=== PATIENT | female | born 1975 | race Caucasian/White ===

== ENCOUNTER → 2019-11-22 09:23 | Outpatient (BNVA) | payer OTHER, SELFPAY | PROVIDERS: Family Provider Nurse Practitioner; Visit Provider Specialist | DX: G43.711 Chronic migraine without aura, intractable, with status migrainosus (principal); M77.8 Other enthesopathies, not elsewhere classified | CPT/HCPCS: 99203; J0585 ==

== ENCOUNTER → 2019-12-13 11:21 | Outpatient (BNVA) | payer OTHER, SELFPAY | PROVIDERS: Family Provider Nurse Practitioner; Visit Provider Specialist | DX: M77.9 Enthesopathy, unspecified (principal); M79.602 Pain in left arm; G43.711 Chronic migraine without aura, intractable, with status migrainosus; G56.23 Lesion of ulnar nerve, bilateral upper limbs | CPT/HCPCS: 95910 ==

== ENCOUNTER → 2019-12-14 12:43 | Outpatient (BNVA) | payer OTHER, SELFPAY | PROVIDERS: Family Provider Nurse Practitioner; Visit Provider Specialist | DX: M77.9 Enthesopathy, unspecified (principal); G43.711 Chronic migraine without aura, intractable, with status migrainosus; M79.602 Pain in left arm | CPT/HCPCS: 20550; 95861; 99213; J1030; J3490 ==

== ENCOUNTER → 2020-02-14 07:58 | Outpatient (BNVA) | payer OTHER, SELFPAY | PROVIDERS: Family Provider Nurse Practitioner; PCP Nurse Practitioner; Visit Provider Specialist | DX: G43.711 Chronic migraine without aura, intractable, with status migrainosus (principal); M77.8 Other enthesopathies, not elsewhere classified; M79.7 Fibromyalgia | CPT/HCPCS: 20550; 64615; J0585 ==

== ENCOUNTER → 2020-05-08 08:14 | Outpatient (BNVA) | payer OTHER, SELFPAY | PROVIDERS: Family Provider Nurse Practitioner; PCP Nurse Practitioner; Visit Provider Specialist | DX: G43.711 Chronic migraine without aura, intractable, with status migrainosus (principal); G56.23 Lesion of ulnar nerve, bilateral upper limbs; M54.2 Cervicalgia | CPT/HCPCS: 64615; 99213; J0585 ==

== ENCOUNTER 2020-06-30 10:04 | Outpatient (CLI) | payer OTHER, SELFPAY ==
--- NOTE | 2020-06-30 10:07 | MM_ITS ---
WS: [id number] SCREENING DIGITAL MAMMOGRAM WITH CAD HISTORY: SCREENING COMPARISON: 02/27/2019 and 01/10/2018 Bilateral CC and MLO views submitted. Computer aided detection analyzed. Breast composition: There are scattered areas of fibroglandular density. No suspicious masses, microc alcifications or architectural distortion. MM/[place] [id number] IMPRESSION: BI-RADS: 1-Negative FOLLOW UP: 1 Year Follow-up
== END 2020-06-30 10:05 | disposition home or self-care (01) ==
LOC: RADSHAW 10:05
PROVIDERS: Family Provider Nurse Practitioner; PCP Nurse Practitioner; Visit Provider Nurse Practitioner
DX: Z12.31 Encounter for screening mammogram for malignant neoplasm of breast (principal)
CPT/HCPCS: 77067

== ENCOUNTER → 2020-07-31 08:04 | Outpatient (BNVA) | payer OTHER, SELFPAY | PROVIDERS: Family Provider Nurse Practitioner; PCP Nurse Practitioner; Visit Provider Specialist | DX: G43.711 Chronic migraine without aura, intractable, with status migrainosus (principal); M77.9 Enthesopathy, unspecified; G56.23 Lesion of ulnar nerve, bilateral upper limbs; M54.2 Cervicalgia | CPT/HCPCS: 64615; 99212; J0585 ==

== ENCOUNTER 2020-08-06 07:31 | Outpatient (RCR) | payer OTHER, SELFPAY | END 2020-08-25 23:59 | disposition home or self-care (01) | LOC: SPO 07:31 | PROVIDERS: Family Provider Nurse Practitioner; PCP Nurse Practitioner; Referring Provider Nurse Practitioner Family; Visit Provider Nurse Practitioner Family | DX: M54.2 Cervicalgia (principal) | CPT/HCPCS: 97035; 97110; 97162; 97166 ==

== ENCOUNTER 2020-08-26 06:00 | Outpatient (RCR) | payer OTHER, SELFPAY | END 2020-09-17 10:25 | disposition home or self-care (01) | LOC: SPO 06:00 | PROVIDERS: Family Provider Nurse Practitioner; PCP Nurse Practitioner; Referring Provider Nurse Practitioner Family; Visit Provider Nurse Practitioner Family | DX: M54.2 Cervicalgia (principal) | CPT/HCPCS: 97035; 97110; 97140 ==

== ENCOUNTER → 2020-10-23 07:59 | Outpatient (BNVA) | payer OTHER, SELFPAY | PROVIDERS: Family Provider Nurse Practitioner; PCP Nurse Practitioner; Visit Provider Specialist | DX: G43.711 Chronic migraine without aura, intractable, with status migrainosus (principal); M77.9 Enthesopathy, unspecified; G56.23 Lesion of ulnar nerve, bilateral upper limbs; M54.2 Cervicalgia | CPT/HCPCS: 64615; J0585 ==

== ENCOUNTER → 2021-01-15 08:03 | Outpatient (BNVA) | payer OTHER, SELFPAY | PROVIDERS: Family Provider Nurse Practitioner; PCP Nurse Practitioner; Visit Provider Specialist | DX: G43.711 Chronic migraine without aura, intractable, with status migrainosus (principal) | CPT/HCPCS: 64615; J0585 ==

== ENCOUNTER → 2021-04-09 07:48 | Outpatient (BNVA) | payer OTHER, SELFPAY | PROVIDERS: Family Provider Nurse Practitioner; PCP Nurse Practitioner; Visit Provider Specialist | DX: G43.711 Chronic migraine without aura, intractable, with status migrainosus (principal) | CPT/HCPCS: 64615; J0585 ==

== ENCOUNTER → 2021-07-02 08:19 | Outpatient (BNVA) | payer OTHER, SELFPAY | PROVIDERS: Family Provider Nurse Practitioner; PCP Nurse Practitioner; Visit Provider Specialist | DX: G43.711 Chronic migraine without aura, intractable, with status migrainosus (principal) | CPT/HCPCS: 64615; J0585 ==

== ENCOUNTER → 2021-07-16 13:41 | Outpatient (BNVA) | payer OTHER, SELFPAY | PROVIDERS: Family Provider Nurse Practitioner; PCP Nurse Practitioner; Visit Provider Surgery | DX: E66.9 Obesity, unspecified (principal); Z68.38 Body mass index [BMI] 38.0-38.9, adult; E11.9 Type 2 diabetes mellitus without complications; K21.9 Gastro-esophageal reflux disease without esophagitis; Z98.84 Bariatric surgery status | CPT/HCPCS: 99213 ==

== ENCOUNTER 2021-07-23 06:53 | Day surgery (SDC) | payer OTHER, SELFPAY ==
[2021-07-21 13:18] VITALS: BMI 38.2
--- NOTE | 2021-07-23 07:01 | W.PM.OPSUD ---
Surgery/Procedure H&P Update DATE OF PROCEDURE: July 23, 2021 DATE H&P PERFORMED: 07/16/21 H&P UPDATE INFORMATION: I have reviewed H&P completed within last 30 days, I have examined patient prior to procedure and No changes to prior documentation CHANGES TO PREVIOUS DOCUMENTATION: The same PLANNED PROCEDURE: Operation Date: 07/23/21 08:30 Proposed Procedures p EGD 36211/44107/k21.9/z12.11(Not Applicable) - Jayro Maza MD s Colonoscopy(Not Applicable) - Jayro Maza MD
[2021-07-23 07:15] VITALS: BP 138/77; PULSE 74; RESP 16; TEMP 36.2; O2SAT 94
[2021-07-23] MEDS: sodium chloride 0.9% 1,000 ML 30 ML IV (07:30)
--- NOTE | 2021-07-23 07:50 | ANES.PREANE2 ---
Documented by User: Jennifer Black CRNA 07/23/21 07:59 Pre-Anesthetic Assessment Height/Weight: Height 1.65 m Weight 104.326 kg Temp Pulse Resp BP Pulse Ox 97.2 F L 74 16 138/77 94 07/23/21 07:15 07/23/21 07:15 07/23/21 07:15 07/23/21 07:15 07/23/21 07:15 Preop Diagnosis: Acid reflux a screening colonoscopy Operation Date: 07/23/21 08:30 Proposed Procedures p EGD 81111/31399/k21.9/z12.11(Not Applicable) - Jayro Maza MD s Colonoscopy(Not Applicable) - Jayro Maza MD Familial anesthetic complications: none Was Beta Vera taken within 24 hours: Yes Was Clonidine taken within 24 hours: N/A Last intake: Intake Last Liquid Date 07/22/21 Last Liquid Time 21:00 Last Solid Date 07/21/21 Last Solid Time 18:30 Social Alcohol (occasional) and No tobacco Exam alert, oriented x 3 and clear to auscultation bilaterally Airway Submandibular: within normal limits Cervical ROM: within normal limits Mallampati: Class II Dentition: full History/ROS No significant history except as noted Pulmonary Sleep Apnea (does not use CPAP) CV/HEM Hypertension Metabolic Hyperlipidemia and Morbid Obesity Anesthetic Plan ASA status: 3 Anesthesia: Anesthesia Evaluation and MAC Risk of > 500 ml blood loss (7ml/kg in children): No Medications/Allergies Home Medications Medication Instructions Recorded Confirmed Last Taken Type atenolol 25 mg tablet 25 mg PO DAILY 11/22/19 07/23/21 07/23/21 History atorvastatin 10 mg tablet 10 mg PO DAILY 11/22/19 07/23/21 07/22/21 History hydrochlorothiazide 25 mg tablet 25 mg PO DAILY 11/22/19 07/23/21 07/22/21 History magnesium oxide 420 mg tablet 420 mg PO DAILY 11/22/19 07/23/21 07/22/21 History metformin 1,000 mg tablet 1,000 mg PO BID 11/22/19 07/23/21 07/22/21 History omega-3 fatty acids 1,000 mg 3,000 mg PO BID cap 11/22/19 07/23/21 07/22/21 History capsule (Fish Oil Concentrate) Allergies Allergy/AdvReac Type Severity Reaction Status Date / Time No Known Allergies Allergy Verified 07/23/21 07:14 Current Medications Generic Name Dose Route Start Last Admin Trade Name Freq PRN Reason Stop Dose Admin Sodium Chloride 1,000 mls @ 30 mls/hr 07/23/21 07:15 07/23/21 07:30 Sodium Chloride 0.9% IV 30 mls/hr .Q24H BEAR Administration PFSH Anesthesia Medical History Diabetes Family History Grandfather CAD (coronary artery disease) Diabetes Grandmother Cancer Mother Diabetes Hypertension Fibromyalgia Father Diabetes Hypertension Atrial fibrillation Sister Diabetes Hypertension Social History Smoking and tobacco status: never smoked Data Anesthesia Cardiac Studies: No Data to Display
[2021-07-23 08:54] VITALS: BP 101/65; PULSE 63; RESP 14; TEMP 36.1; O2SAT 90
--- NOTE | 2021-07-23 08:58 | ANE.PACU2 ---
Documented by User: Jennifer Black CRNA 07/23/21 08:58 Inpatient post-anesthesia follow up: Airway intact: Yes Vital signs: Temperature 97.0 F Pulse Rate 63 Respiratory Rate 14 Blood Pressure 101/65 Pulse Oximetry 90 Oxygen Delivery Me thod Nasal Cannula Oxygen Flow Rate 3 Fraction of Inspir ed Oxygen Hydration adequate: Yes Nausea and vomiting: No Pain level: 1 Mental status: Baseline
[2021-07-23 09:06] VITALS: BP 100/68; PULSE 64; RESP 16; O2SAT 96
== END 2021-07-23 09:31 | disposition home or self-care (01) ==
PROVIDERS: PCP Nurse Practitioner; Visit Provider Surgery
PROC: 0DJ08ZZ Inspection of Upper Intestinal Tract, Via Natural or Artificial Opening Endoscopic (ICD-10-PCS; CPT 43235; principal; 2021-07-23 08:30)
PROC: 0DJD8ZZ Inspection of Lower Intestinal Tract, Via Natural or Artificial Opening Endoscopic (ICD-10-PCS; CPT 45378; 2021-07-23 08:30)
DX: Z12.11 Encounter for screening for malignant neoplasm of colon (principal); K21.9 Gastro-esophageal reflux disease without esophagitis; K57.30 Diverticulosis of large intestine without perforation or abscess without bleeding; D12.5 Benign neoplasm of sigmoid colon; K29.70 Gastritis, unspecified, without bleeding; K29.80 Duodenitis without bleeding; G47.30 Sleep apnea, unspecified; I10 Essential (primary) hypertension; E78.5 Hyperlipidemia, unspecified; E66.01 Morbid (severe) obesity due to excess calories; Z68.38 Body mass index [BMI] 38.0-38.9, adult; E11.9 Type 2 diabetes mellitus without complications
CPT/HCPCS: 43239; 45380; 88305; J2704; J7030

== ENCOUNTER 2021-07-30 06:53 | Outpatient (CLI) | payer OTHER, SELFPAY ==
--- NOTE | 2021-07-30 | US_ITS ---
WS: [id number] ULTRASOUND ABDOMEN LIMITED CLINICAL INFORMATION: RUQ PAIN COMPARISON: None. FINDINGS: Technically difficult study due to bowel gas Liver Size: Enlarged Craniocaudal length: 18.6 cm. Echogenicity: Heterogeneous Surface nodularity: None. Mass (size and location): None. Bile ducts Intrahepatic ducts: Normal. Common bile duct diameter: 0.5 cm. Gallbladder Normal. Gallstones: None. Gallbladder sludge: None. Gallbladder wall thickening: None. Pericholecystic fluid: None. Sonographic Montes sign: Absent. Pancreas Not well seen due to bowel gas Right kidney: Normal. Hydronephrosis: None. Size: 11.9 cm x 4.6 cm x 4.3 cm. Abdominal aorta and IVC Visualized portions are normal. Ascites: None. US/US abdomen limited [id number] IMPRESSION: Technically difficult study due to bowel gas 1. Hepatomegaly with coarse hepatic echogenicity likely due to fatty infiltrat ion versus hepatocellular disease. Recommend correlation with liver function te sts. 2. Normal gallbladder. No cholelithiasis. 3. No hydronephrosis in RIGHT kidney. 4. Pancreas not well visualized.
== END 2021-07-30 06:54 | disposition home or self-care (01) ==
LOC: RAD 06:54
PROVIDERS: PCP Nurse Practitioner; Visit Provider Nurse Practitioner
DX: R10.11 Right upper quadrant pain (principal); R16.0 Hepatomegaly, not elsewhere classified
CPT/HCPCS: 76705

== ENCOUNTER 2021-08-07 07:52 | Outpatient (CLI) | payer OTHER, SELFPAY ==
--- NOTE | 2021-08-07 07:55 | MM_ITS ---
WS: [id number] BILATERAL SCREENING DIGITAL BREAST TOMOSYNTHESIS MAMMOGRAM WITH CAD HISTORY: SCREENING COMPARISON: 06/30/2020, 02/27/2019 and 04/20/2016 Bilateral CC and MLO views with tomosynthesis and synthetic mammography submitted. Computer aided det ection analyzed. Breast composition: There are scattered areas of fibroglandular density. No suspicious masses, microc alcifications or architectural distortion. 6 mm asymmetry in the lateral RIGHT breast on the CC proje ction similar to 2017. MM/[place] [id number] IMPRESSION: BI-RADS: 2-Benign FOLLOW UP: 1 Year Follow-up
== END 2021-08-07 07:53 | disposition home or self-care (01) ==
LOC: RAD 07:52
PROVIDERS: PCP Nurse Practitioner; Visit Provider Nurse Practitioner
DX: Z12.31 Encounter for screening mammogram for malignant neoplasm of breast (principal)
CPT/HCPCS: 77063; 77067

== ENCOUNTER → 2021-09-09 07:55 | Outpatient (BNVA) | payer OTHER, SELFPAY | PROVIDERS: PCP Nurse Practitioner; Visit Provider Surgery | DX: E66.01 Morbid (severe) obesity due to excess calories (principal); Z68.38 Body mass index [BMI] 38.0-38.9, adult; E11.9 Type 2 diabetes mellitus without complications; K57.31 Diverticulosis of large intestine without perforation or abscess with bleeding; K63.5 Polyp of colon; K75.81 Nonalcoholic steatohepatitis (NASH) | CPT/HCPCS: 99213 ==

== ENCOUNTER → 2021-09-24 08:16 | Outpatient (BNVA) | payer OTHER, SELFPAY | PROVIDERS: PCP Nurse Practitioner; Visit Provider Specialist | DX: G43.711 Chronic migraine without aura, intractable, with status migrainosus (principal) | CPT/HCPCS: 64615; J0585 ==

== ENCOUNTER → 2021-10-07 13:02 | Outpatient (BNVA) | payer OTHER, SELFPAY | PROVIDERS: PCP Nurse Practitioner; Visit Provider Surgery | DX: E66.9 Obesity, unspecified (principal); Z68.38 Body mass index [BMI] 38.0-38.9, adult; E88.81 Metabolic syndrome and other insulin resistance; E11.9 Type 2 diabetes mellitus without complications; K75.81 Nonalcoholic steatohepatitis (NASH) | CPT/HCPCS: 80053; 80061; 82310; 82607; 82652; 82728; 82746; 83540; 83550; 83735; 83970; 84443; 84630; 85025; 99024 ==

== ENCOUNTER 2021-11-02 12:43 | Inpatient (IN) | payer OTHER, SELFPAY ==
[2021-10-27 09:44] VITALS: BMI 35.1
--- NOTE | 2021-10-27 10:30 | P.ANESASSM_ITS ---
Pre-Anesthetic Assessment Height/Weight: Height 1.65 m Weight 95.708 kg Preop Diagnosis: Acid reflux a screening colonoscopy Operation Date: 11/02/21 07:00 Proposed Procedures p laparascopic vertical gastric sleeve and 40914 EGD 37802,K21.9,E66.01(Not Applicable) - Jayro Maza MD Familial anesthetic complications: PONV Was Beta Vear taken within 24 hours: Yes Was Clonidine taken within 24 hours: N/A Social No alcohol and No tobacco Exam alert, oriented x 3, clear to auscultation bilaterally and regular rate & rhythm Airway Submandibular: within normal limits Cervical ROM: within normal limits Mallampati: Class III Dentition: chipped Comments: Comments: Overbite CV/HEM Hypertension GI Gastroesophageal Reflux Disease Metabolic Diabetes Mellitus, Hyperlipidemia and Morbid Obesity Musc/skel Osteoarthritis/DJD Neuropsych Headache Anesthetic Plan ASA status: 3 Anesthesia: General Medications/Allergies Home Medications Medication Instructions Recorded Confirmed Last Taken Type atenolol 25 mg tablet 25 mg PO DAILY 11/22/19 10/27/21 10/27/21 07:00 History atorvastatin 10 mg tablet 10 mg PO DAILY 11/22/19 10/27/21 10/26/21 20:00 History hydrochlorothiazide 25 mg tablet 25 mg PO DAILY 11/22/19 10/27/21 10/27/21 07:00 History magnesium oxide 420 mg tablet 420 mg PO DAILY 11/22/19 10/27/21 10/27/21 07:00 History metformin 1,000 mg tablet 1,000 mg PO BID 11/22/19 10/27/21 10/27/21 History omega-3 fatty acids 1,000 mg 3,000 mg PO BID 11/22/19 10/27/21 10/25/21 History capsule (Fish Oil Concentrate) ubrogepant 100 mg tablet (Ubrelvy) 100 mg PO ONCE #90 tabs 09/24/21 10/08/21 Unknown Rx Allergies Allergy/AdvReac Type Severity Reaction Status Date / Time No Known Allergies Allergy Verified 10/08/21 08:22 [facility] Anesthesia Medical History Diabetes Family History Grandfather CAD (coronary artery disease) Diabetes Grandmother Cancer Mother Diabetes Hypertension Fibromyalgia Father Diabetes Hypertension Atrial fibrillation Sister Diabetes Hypertension Social History Smoking and tobacco status: never smoked Female Reproductive History Date of last menstrual period: 04/13/18 Data Anesthesia Cardiac Studies: No Data to Display
[2021-11-02] VITALS (28 sets, daily range): BP systolic 130–149; BP diastolic 76–98; PULSE 59–96; RESP 12–19; TEMP 36.1–37; O2SAT 94–100
[2021-11-02] MEDS: sodium chloride 0.9% 1,000 ML 999 ML IV (07:58)
[2021-11-02] MEDS: scopolamine 1.5 Patch 1 PATCH TRANSDERMA (08:04)
[2021-11-02] MEDS: pantoprazole 40 mg SDV IVP (08:06)
--- NOTE | 2021-11-02 08:08 | P.ANESUD_ITS ---
Pre-Anesthetic Update Pre-Anesthetic Assessment: Date of Surgery/Procedure: 11/02/21 Preop Kathy gnosis: Acid reflux a screening colonoscopy Proposed Procedure: Operation Date: 11/02/21 09:00 Proposed Procedures p laparascopic vertical gastric sleeve and 65331 EGD 52099,K21.9,E66.01(Not Applicable) - Jayro Maza MD Any changes to Pre-Anesthetic Assessment?: No Last Intake: Intake Last Liquid Date 11/01/21 Last Liquid Time 20:30 Last Solid Date 10/18/21 Last Solid Time 00:00 Vitals: Temperature 97 F L 11/02/21 07:37 Pulse Rate 59 L 11/02/21 07:37 Respiratory Rate 16 11/02/21 07:37 Blood Pressure 134/86 11/02/21 07:37 Blood Pressure Miranda n 102 11/02/21 07:37 Pulse Oximetry 100 11/02/21 07:37 Oxygen Delivery Me thod 11/02/21 07:37 Exam: Pre-Anes Outpt Exam: alert, oriented x 3, clear to auscultation bilaterally and regular rate & rhythm Cardiac Studies: No Data to Display
[2021-11-02] MEDS: heparin 5,000 unit/mL INJ 1 mL 5000 UNIT SUBCUT (08:11)
[2021-11-02] MEDS: acetaminophen 1,000 MG/100 ML PIGGYBACK 400 MG IV ×2 (08:14→17:55)
--- NOTE | 2021-11-02 08:18 | W.PM.OPSUD ---
Surgery/Procedure H&P Update DATE OF PROCEDURE: November 02, 2021 DATE H&P PERFORMED: 10/07/21 H&P UPDATE INFORMATION: I have reviewed H&P completed within last 30 days, I have examined patient prior to procedure and Changes to prior documentation as noted here (Patient lost 14 pounds on liquid protein diet) PREOP DIAGNOSIS: Obesity PRIMARY INDICATION FOR PROCEDURE: The same PLANNED PROCEDURE: Operation Date: 11/02/21 09:00 Proposed Procedures p laparascopic vertical gastric sleeve [place] 10273 EGD 75573,K21.9,E66.01(Not Applicable) - Jayro Maza MD
[2021-11-02 08:23] LABS: Glucose Point of Care 105 mg/dL (70-110)
[2021-11-02] MEDS: ondansetron 2 mg/ML SDV 2 mL 4 MG IVP ×2 (08:27→19:41)
[2021-11-02] MEDS: sodium chloride 0.9% 1,000 ML 30 ML IV (08:41)
[2021-11-02] MEDS: ceFAZolin 2,000 MG in sodium chloride 0.9% (plus) 50 ML 100 MG IV (08:59)
--- NOTE | 2021-11-02 12:01 | P.OP_ITS ---
Operative Report Date of procedure: November 02, 2021 Pre-op diagnosis: Preop Diagnosis Obesity Post-op findings: Fatty liver Procedure done: Laparoscopic vertical sleeve gastrectomy and intraoperative EGD Specimens removed/disposition: Subtotal gastrectomy with gastric sleeve. Sutures marked proximal Surgeon: Jayro Maza MD Motion Graphics Artist: Surgical vandana Kaufman Circulating nurse Natasha Zamudio Anesthesia: General (GETA ELECTROPLATER HELPER Korin/Lexie) Estimated blood loss (mL): 25 IV fluids (mL): 2,100 Urine output (mL): 400 Procedure: Patient was identified in the holding area, appropriate pharmacologic DVT prophylaxis was given and preoperative IV fluid hydration, patient was then taken to the operating room where the patient was placed in supine position, intubated by anesthesia prophylactic antibiotics were given per protocol, Time- out was done verifying the patient's name/date of /planned procedure and destination after the procedure, all were in agreement.SCDs confirmed to be functioning, and beta ras protocol was confirmed. A Lynn catheter was inserted by the circulating nurse revealing clear urine. A foot board was applied to secure the patient while the patient is placed in reversed Trendelenburg, all pressure points were padded, and the patient was appropriately secured to the table, anesthesia was asked to rotate the table back and forth to verify that the patient is appropriately secured, and that was the case. The abdomen was prepped and draped under the usual sterile technique. A transverse incision was made with a 15 blade scalpel approximately 15 cm below the xiphoid process and 3 cm left of the midline. A 5 mm optical trocar port was placed under direct vision into the peritoneal cavity without initial evidence of injury to peritoneal structures upon entry. The peritoneal cavity was insufflated with carbon dioxide gas up to 15 mmHg pressure. A 45? angle laparoscopy was placed through the port into the peritoneal cavity there was no significant blood, fluid, or evidence of intra- abdominal injury under direct visualization,at that point longer trocars were then used; a 12 mm trocar port was placed in the right epigastric region and a fourth 5 mm trocar port was placed in the mid epigastric region more caudad than and medial to the previous port. A 5 mm trocar port was placed in the left lateral flank and additional 5 mm trocar was inserted midway between the left lateral flank trocar and the initial 5 mm trocar. There after the index 5 mm trocar was switched to a 12 mm trocar under direct visualization after extending the skin incision. I lifted the omentum up to make sure there were no injuries encountered from the initial trocar insertion except the superficial mesenteric none transfix tear, the underlying transverse colon and small bowel viscera were normal. I was able under direct visualization to take a [id number] 2-0 silk suture to the superficial mesenteric tear without compromising the blood supply to the small bowel and otherwise there was no other tears or injuries or bleeding or succus. A subxiphoid stab incision was made and dissection into the peritoneum with 5 mm obturator. A grasping laparoscopic clamp was inserted through here and clamped to the right james of the diaphragm to elevate the liver for the entirety of the case. All trocars inserted were long arc trocars due to the thick layer of subcutaneous tissue that the patient has.Patient was then placed in the reversed Trendelenburg. Noticed that the patient continues to have fatty liver Following this, the greater curvature of the stomach was freed from the omentum using the ENSEAL device. This division included the short gastric vessels proximally. This dissection was carried from approximately 4 cm-6 cm proximal to the pylorus and extending all the way up to the angle of Hiss. During this process the posterior aspect of the stomach was mobilized from the underlying peritoneum and the posterior aspect of the stomach was well exposed. With the greater curvature of the stomach exposed from within 4-6 cm of the pylorus and extending to the angle of Hiss, which also included the posterior stomach, a 40 Japanese standard template passed under direct vision down the esophagus, stomach, and into the first part of the duodenum by the anesthesia provider and under direct guidance and visualization by me, via the laparoscopy. Using the template 40 Japanese aligned along the lesser curvature of the stomach and all the way to the first part of the Duodenum, the 40 Japanese Bougie was used as a template the laparoscopic vertical gastric sleeve was performed starting from a point about 5 cm from the pylorus along the greater curvature. Using the [place] Laparoscopic PAULO linear cutting stapler with [employer] Energyp[employer] enforcement, a series of jess were used to transect the stomach in a vertical fashion along the left side of the template. Through the entire division of the stomach using the staplers, the template was always checked to be in good place and well aligned to the lesser curvature while dividing the stomach. This was carried all the way to the angle of [facility]. [place] 60 mm Green loads were used for the distal third of the stomach and Gold loads were used for the more proximal part of the stomach and then blue loads with reinforcement. All staplers were reinforced by Endopath. The staple line along the remaining tubularized stomach was tested for leaks and bleeding under direct vision as the 40 Japanese template was exchanged (and there was no evidence of blood on the tip of the template) by a standard diagnostic EGD via the mouth by my me after I scrubbed out, insufflation was achieved using CO2 gas and the staple line submerged under saline, meanwhile a clamp was applied distally onto the end of the tubularized stomach to allow insufflation test for leak. There was no evidence of leak .There was adequate hemostasis along the staple line.EGD was taken out at this point after deflation of the tubularized stomach. I scrubbed the back in. The transected partial stomach, which included the greater curvature, was removed from the peritoneum through the first 12 mm trocar site, and was sent for permanent pathology. Prior to closure of the fascia. A final look laparoscopy identified no injuries or bleeding or bowel ischemia. Bilateral TAP (transversus abdominous plain peripheral nerve block) block using Exparel 20 mL Exparel,40 ml Normal saline,20 ml bupivacaine 0.25% 30 mL on each side injected, 20 mL injected the port sites. An interrupted #1 PDS suture on a granny needle suture passer was used to close the right epigastric and the other 12 mm trocar left of the midline fascial defects under direct visualization. The other trocars were removed under direct vision and no evidence of bleeding was identified. The pneumoperitoneum was decompressed. All skin incisions were irrigated with saline, then closed with jess, followed by application of sterile dressings. The patient was extubated and taken to the recovery room with normal vital signs. Lynn catheter was maintained All counts of instruments, sponges and needles were completed at the end of the procedure I was present for the whole entire procedure
--- NOTE | 2021-11-02 12:28 | SUR.PHASEI ---
1228-oral airway removed
[2021-11-02] MEDS: fentaNYL 50 mcg/mL INJ 2mL IVP (13:15)
--- NOTE | 2021-11-02 13:48 | ANE.PACU2 ---
Inpatient post-anesthesia follow up: Airway intact: Yes Vital signs: Temperature 97.9 F Pulse Rate 68 Respiratory Rate 18 Blood Pressure 139/94 Pulse Oximetry 95 Oxygen Delivery Me thod Nasal Cannula Oxygen Flow Rate 2 Fraction of Inspir ed Oxygen Hydration adequate: Yes Nausea and vomiting: No Pain level: 1 Mental status: Baseline
[2021-11-02] MEDS: sodium chloride 0.9% 1,000 ML 150 ML IV ×2 (14:51→19:36)
[2021-11-02] MEDS: metoclopramide 5 mg/mL SDV 2 mL IVP (15:05)
[2021-11-02] MEDS: morphine 4 mg/mL SDV 1 mL 2 MG IVP (19:35)
[2021-11-03] VITALS (8 sets, daily range): BP systolic 134–161; BP diastolic 72–81; PULSE 55–91; RESP 15–20; TEMP 36.1–36.9; O2SAT 93–98
[2021-11-03] MEDS: sodium chloride 0.9% 1,000 ML 150 ML IV ×2 (02:07→08:55)
[2021-11-03] MEDS: acetaminophen 1,000 MG/100 ML PIGGYBACK 400 MG IV (02:24)
[2021-11-03 03:29] LABS: Hematocrit 37.2 % (37.0-47.0); Hemoglobin 11.7 g/dL (11.5-15.3)
[2021-11-03 03:53] LABS: Anion Gap 18.5 (5-19); Blood Urea Nitrogen 10 mg/dL (6-20); Calcium 7.6 mg/dL (8.5-10.5); Carbon Dioxide 21 mmol/L (22-29); Chloride 103 mmol/L (98-107); Glomerular Filtration Rate 107.6 mL/min (90-130); Glucose 102 mg/dL (65-115); Osmolality Calculated 287 mOsm/kg (285-295); Potassium 3.5 mmol/L (3.5-5.1); Sodium 139 mmol/L (136-145)
[2021-11-03] MEDS: heparin 5,000 unit/mL INJ 1 mL 5000 UNIT SUBCUT ×3 (06:22→20:53)
--- NOTE | 2021-11-03 07:02 | PM.PN ---
Subjective Subjective: Patient overall feels well. Pain under appropriate control. Adequate urine output. Stable H&H and otherwise normal lab values except for hypocalcemia of 7.6. Medications: Reviewed: Yes Vitals/I&O/Wt Last Vital Signs Temp 98.4 F 11/03/21 04:51 Pulse 66 11/03/21 04:51 Resp 20 H 11/03/21 04:51 BP 143/72 11/03/21 04:51 Pulse Ox 94 11/03/21 04:51 O2 Del Method 11/02/21 20:00 O2 Flow Rate 2 11/02/21 15:07 11/02/21 11/03/21 11/03/21 22:59 06:59 14:59 Intake Total 1239.5 / 4489.5 1077.5 / 5567.0 Output Total 1170 / 2095 Balance 1239.5 / 3564.5 -92.5 / 3472.0 Weight last 48 hrs Weight 208 lb Physical Exam Narrative: Patient is conscious alert oriented X3 No apparent distress BMI 34.6 Head and neck examination PERRLA no masses no cervical lymphadenopathy no jaundice Cardiac examination audible S1-S2 no murmurs no gallops no arrhythmias Chest is clear bilateral,abscence of Rhonchi or wheezes,no surgical emphysema Abdomen nontender except mildly at the incision site , Band-Aids are in place. Nondistended soft otherwise no organomegaly guarding or rigidity/no signs of peritonitis Extremities no cyanosis no clubbing no edema Urinary Catheter Management: Lynn: Cath Placed During This Visit: yes, but has since been removed by the nurse Reason for Continuing Indwelling Catheter: Perioperative Use in Selected Surgeries Urinary Catheter Date of Insertion: 11/02/21 Urinary Catheter Time of Insertion: 08: Date Urinary Catheter Removed: 11/03/21 Time Urinary Catheter Discontinued: 06:25 Data : 11/03/21 03:12 11/03/21 03:12 A&P Assessment and plan (1) Status post laparoscopic sleeve gastrectomy: Assessment 46 years old female patient status post laparoscopic sleeve gastrectomy 11/02/2021 Plan Continue n.p.o. till we obtain the upper GI study once this is done we will start the patient on post bariatric phase 1 diet Continue pharmacologic DVT prophylaxis Encourage ambulation Incentive spirometer every hour We will start switching the patient to p.o. pain medication Decrease IV fluids once patient tolerates p.o. intake DC Lynn catheter Replacement of Assurance and education All questions have been answered and all concerns have been addressed to patient's satisfaction. Status: Acute Attestations Medical Necessity Statement*: Patient requiring inpatient hospitalization for perioperative care passing 2 midnights, status post laparoscopic vertical sleeve gastrectomy Time Spent in Patient Care: 16 - 35 minutes Coding Level of Care Code Acute Education Supervisor for Chg Fwd Diagnoses Status post laparoscopic sleeve gastrectomy Z98.84
--- NOTE | 2021-11-03 08:00 | FL_ITS ---
WS: [id number] FL upper GI series [id number] REASON FOR EXAM: Status Post Gastric Sleeve FLUOROSCOPY TIME: 1.2 # OF SPOT FILMS: 30 FINDINGS: Status post gastric sleeve. The swallowing of water-soluble contrast was performed with the patient in the upright position and m onitored and evaluated with fluoroscopy and spot films. The contrast flowed readily through the fundu s and body of the stomach and into the duodenum. No extravasation. FL/FL upper GI series [id number] IMPRESSION: Postoperative stomach without abnormality.
--- NOTE | 2021-11-03 09:03 | ECG_ITS ---
[facility] Test Date: 2021-11-03 Pat Name: Yvette Pascual Department: Room: 267 Gender: Female It Investment/Portfolio Manager: : 1975 Requested By: Belkis Wolff Order Number: [id number] Doug MD: Stevie Cruz M.D. Measurements Intervals [place] Rate: 59 P: -23 [place]: 167 QRS: 16 QRSD: 94 T: 4 QT: 439 QTc: 436 Interpretive Statements SINUS BRADYCARDIA No previous ECG available for comparison Electronically Signed On 11-03-2021 18:57:21 CDT by Stevie Cruz M.D. [id number]
[2021-11-03] MEDS: diatrizoate meglumine 120 mL Sol PO (09:20)
[2021-11-03] MEDS: ondansetron 2 mg/ML SDV 2 mL 4 MG IVP (10:14)
[2021-11-03] MEDS: morphine 4 mg/mL SDV 1 mL 2 MG IVP (10:14)
--- NOTE | 2021-11-03 10:33 | PC.NUTR ---
TPN consult received. As with previous note, recommend starting @ 13 mls/hr and increasing 10 mls/hr Q8H until 83 mls/hr reached with 25 grams/125 mls Fat Emulsion as well as multivitamins 10 mls/day and standard electrolytes. Details in RD assessment.
[2021-11-03] MEDS: atenolol 50 mg Tablet 25 MG PO (15:10)
[2021-11-03] MEDS: sodium chloride 0.9% 1,000 ML 75 ML IV (17:53)
[2021-11-03] MEDS: HYDROcodone-acetaminophen 5-325 mg Tablet 1 TAB PO (20:02)
[2021-11-04] VITALS: BP 132/72; PULSE 58; RESP 16; TEMP 36.5; O2SAT 98
[2021-11-04] MEDS: HYDROcodone-acetaminophen 5-325 mg Tablet 1 TAB PO ×2 (03:06→08:13)
[2021-11-04 03:17] LABS: Hematocrit 39.5 % (37.0-47.0); Hemoglobin 12.9 g/dL (11.5-15.3)
[2021-11-04 03:45] LABS: Anion Gap 17.7 (5-19); Blood Urea Nitrogen 6 mg/dL (6-20); Calcium 7.9 mg/dL (8.5-10.5); Carbon Dioxide 24 mmol/L (22-29); Chloride 100 mmol/L (98-107); Glomerular Filtration Rate 107.6 mL/min (90-130); Glucose 103 mg/dL (65-115); Osmolality Calculated 284 mOsm/kg (285-295); Potassium 3.7 mmol/L (3.5-5.1); Sodium 138 mmol/L (136-145)
[2021-11-04 04:00] VITALS: BP 150/81; PULSE 80; RESP 16; TEMP 36.2; O2SAT 94
[2021-11-04] MEDS: heparin 5,000 unit/mL INJ 1 mL 5000 UNIT SUBCUT (05:33)
[2021-11-04] MEDS: sodium chloride 0.9% 1,000 ML 75 ML IV (05:40)
--- NOTE | 2021-11-04 07:43 | PM.PN ---
Subjective Subjective: Patient overall feels well and tolerating p.o. intake. Associated with some nausea but well under control. Pain is controlled by oral pain medications. Atenolol was resumed yesterday. Labs show stable H&H yet hypocalcemia is yet appreciated Medications: Reviewed: Yes Vitals/I&O/Wt Last Vital Signs Temp 97.2 F L 11/04/21 04:00 Pulse 80 11/04/21 04:00 Resp 16 11/04/21 04:00 BP 150/81 11/04/21 04:00 Pulse Ox 94 11/04/21 04:00 O2 Del Method 11/03/21 20:00 O2 Flow Rate 2 11/02/21 15:07 11/03/21 11/04/21 11/04/21 22:59 06:59 14:59 Intake Total 1099 1070 / 3170 Balance 1099 1070 / 3170 Physical Exam Narrative: Patient is conscious alert oriented X3 No apparent distress BMI 34.6 Head and neck examination PERRLA no masses no cervical lymphadenopathy no jaundice Cardiac examination audible S1-S2 no murmurs no gallops no arrhythmias Chest is clear bilateral,abscence of Rhonchi or wheezes,no surgical emphysema Abdomen nontender except mildly at the incision site , Band-Aids were removed and incisions are clean dry and intact Nondistended soft otherwise no organomegaly guarding or rigidity/no signs of peritonitis Extremities no cyanosis no clubbing no edema Urinary Catheter Management: Lynn: Cath Placed During This Visit: yes, but has since been removed by the nurse Reason for Continuing Indwelling Catheter: Other Urinary Catheter Date of Insertion: 11/02/21 Urinary Catheter Time of Insertion: 08: Date Urinary Catheter Removed: 11/03/21 Time Urinary Catheter Discontinued: 06:25 Data : 11/04/21 02:31 11/04/21 02:31 Other Imaging: My impression: No evidence of extravasation of contrast and appropriate surgical appearance of the gastric conduit status post gastric sleeve and no evidence of hiatal hernia. Radiologist's impression: Status post gastric sleeve. The swallowing of water-soluble contrast was performed with the patient in the upright position and monitored and evaluated with fluoroscopy and spot films. The contrast flowed readily through the fundus and body of the stomach and into the duodenum. No extravasation. FL/FL upper GI series [id number] IMPRESSION: Postoperative stomach without abnormality. ? A&P Assessment and plan (1) Status post laparoscopic sleeve gastrectomy: Assessment 46 years old female patient status post laparoscopic sleeve gastrectomy 11/02/2021 Plan Continue post bariatric phase I diet Continue pharmacologic DVT prophylaxis Encourage ambulation Incentive spirometer every hour We will start switching the patient to p.o. pain medication Plan to discharge home today Replacement of calcium Assurance and education All questions have been answered and all concerns have been addressed to patient's satisfaction. Status: Acute Attestations Medical Necessity Statement*: Patient requiring inpatient requiring inpatient hospitalization passing 2 midnight for perioperative care Coding Level of Care Code Acute Saw Operator for Chg Fwd Diagnoses Status post laparoscopic sleeve gastrectomy Z98.84
[2021-11-04 08:00] VITALS: BP 145/81; PULSE 60; PULSE 76; RESP 15; RESP 16; TEMP 36.8; O2SAT 95; O2SAT 96
[2021-11-04] MEDS: calcium gluconate 0.9% NaCL 1 GM/50 ML PREMIX IV ×2 (08:08→09:14)
[2021-11-04] MEDS: atenolol 50 mg Tablet 25 MG PO (08:08)
--- NOTE | 2021-11-04 11:07 | PM.DCS ---
Discharge Providers Date of Admission: 11/02/21 12:43 Date of Discharge: November 04, 2021 Attending Provider at Admission: Jayro Maza MD Attending Provider at Discharge: Jayro Maza MD Primary Care Provider: DAVID Campos Diagnoses at Discharge Discharge Diagnosis (1) Status post laparoscopic sleeve gastrectomy: Status: Acute Reason for Visit Reason for Visit: Brief History: This is a pleasant 46 years old female patient with history of obesity and associated multiple medical comorbidities, met the appropriate indication and based on medical necessity for bariatric surgery in the form of laparoscopic vertical sleeve gastrectomy. Hospital Course Hospital Course Patient undergone uneventful laparoscopic vertical sleeve gastrectomy on 11/02/2021, continue to have stable vital signs and adequate urine output, continue to be on pharmacologic DVT prophylaxis and undergone a postoperative day 1 upper GI study that showed a satisfactory surgical changes status post gastric sleeve. Patient was started on p.o. intake and tolerated it well. Patient did encounter hypocalcemia and also gluconate IV was given. Lynn catheter was removed postoperative day 1 and patient was able to void satisfactorily on her own. Continue to pass gas and patient is meeting the appropriate and safe criteria for discharge home today. Patient will be placed on pharmacologic DVT prophylaxis on her discharge home the form of Lovenox 40 mg subcutaneous daily for 10 days. Patient was well educated about the importance of checking her glucose on daily basis. Physical Exam Urinary Catheter Management: Lynn: Cath Placed During This Visit: yes, but has since been removed by the nurse Reason for Continuing Indwelling Catheter: Other Urinary Catheter Date of Insertion: 11/02/21 Urinary Catheter Time of Insertion: 08:25 Date Urinary Catheter Removed: 11/03/21 Time Urinary Catheter Discontinued: 06:25 Discharge Data Studies Completed and Pending Completed Studies During Hospitalization Category Date Time Status [place] upper GI series [id number] Routine Exams 11/03/21 08:00 Completed Pending at discharge Category Date Time Status ES surgery / GI images Routine Exams 11/02/21 08:48 Taken Basic Metabolic Panel AM LABS Lab 11/05/21 04:00 Ordered Hemoglobin and Hematocrit AM LABS Lab 11/05/21 04:00 Ordered Pathology: Surgical [PTH] Routine Pth 11/02/21 11:44 Received Radiology Impressions Upper GI Series 11/03/21 08:00 IMPRESSION: Postoperative stomach without abnormality. Laboratory Results Hgb 12.9 g/dL (11.5-15.3) 11/04/21 02:31 Hct 39.5 % (37.0-47.0) 11/04/21 02:31 Sodium 138 mmol/L (136-145) 11/04/21 02:31 Potassium 3.7 mmol/L (3.5-5.1) 11/04/21 02:31 Chloride 100 mmol/L (98-107) 11/04/21 02:31 Carbon Dioxide 24 mmol/L (22-29) 11/04/21 02:31 Anion Gap 17.7 (5-19) 11/04/21 02:31 BUN 6 mg/dL (6-20) 11/04/21 02:31 Creatinine 0.6 mg/dL (0.5-0.9) 11/04/21 02:31 GFR Calculation 107.6 mL/min (90-130) 11/04/21 02:31 Glucose 103 mg/dL (65-115) 11/04/21 02:31 POC Glucose 105 mg/dL (70-110) 11/02/21 08:01 Calculated Osmolality 284 mOsm/kg (285-295) L 11/04/21 02:31 Calcium 7.9 mg/dL (8.5-10.5) L 11/04/21 02:31 Imaging Other Imaging: Radiologist's impression: Status post gastric sleeve. The swallowing of water-soluble contrast was performed with the patient in the upright position and monitored and evaluated with fluoroscopy and spot films. The contrast flowed readily through the fundus and body of the stomach and into the duodenum. No extravasation. FL/DC upper GI series [id number] IMPRESSION: Postoperative stomach without abnormality. Procedures Performed Preop Diagnosis ? Obesity ? Post-op findings: Fatty liver Procedure done: Laparoscopic vertical sleeve gastrectomy and intraoperative EGD Specimens removed/disposition: Subtotal gastrectomy with gastric sleeve.? Sutures marked proximal Surgeon: Jayro Maza MD Director Of Business Continuity: Surgical techjr Cisse and Terri Circulating nurse Natasha Zamudio Anesthesia: General (JOSE ANGELA JORGE Langley/Lexie) Estimated blood loss (mL): 25 IV fluids (mL): 2,100 Urine output (mL): 400 Procedure: Patient was identified in the holding area, appropriate pharmacologic DVT prophylaxis was given and preoperative IV fluid hydration, patient was then taken to the operating room where the patient was placed in supine position, intubated by anesthesia prophylactic antibiotics were given per protocol, Time-out was done verifying the patient's name/date of /planned procedure and destination after the procedure, all were in agreement.SCDs confirmed to be functioning, and beta ras protocol was confirmed. A Lynn catheter was inserted by the circulating nurse revealing clear urine. A foot board was applied to secure the patient while the patient is placed in reversed Trendelenburg, all pressure points were padded, and the patient was appropriately secured to the table, anesthesia was asked to rotate the table back and forth to verify that the patient is appropriately secured, and that was the case. The abdomen was prepped and draped under the usual sterile technique.? A transverse incision was made with a 15 blade scalpel approximately 15 cm below the xiphoid process and 3 cm left of the midline. A 5 mm optical trocar port was placed under direct vision into the peritoneal cavity without initial evidence of injury to peritoneal structures upon entry. The peritoneal cavity was insufflated with carbon dioxide gas up to 15 mmHg pressure. A 45? angle laparoscopy was placed through the port into the peritoneal cavity there was no significant blood, fluid, or evidence of intra-abdominal injury under direct visualization,at that point longer trocars were then used; a 12 mm trocar port was placed in the right epigastric region and a fourth 5 mm trocar port was placed in the mid epigastric region more caudad than and medial to the previous port. A 5 mm trocar port was placed in the left lateral flank and additional 5 mm trocar was inserted midway between the left lateral flank trocar and the initial 5 mm trocar.? There after the index 5 mm trocar was switched to a 12 mm trocar under direct visualization after extending the skin incision. I lifted the omentum up to make sure there were no injuries encountered from the initial trocar insertion except the superficial mesenteric none transfix tear, the underlying transverse colon and small bowel viscera were normal. I was able under direct visualization to take a [id number] 2-0 silk suture to the superficial mesenteric tear without compromising the blood supply to the small bowel and otherwise there was no other tears or injuries or bleeding or succus. A subxiphoid stab incision was made and dissection into the peritoneum with 5 mm obturator.? A grasping laparoscopic clamp was inserted through here and clamped to the right james of the diaphragm to elevate the liver for the entirety of the case.? All trocars inserted were long arc trocars due to the thick layer of subcutaneous tissue that the patient has.Patient was then placed in the reversed Trendelenburg.? Noticed that the patient continues to have fatty liver Following this, the greater curvature of the stomach was freed from the omentum using the ENSEAL device.? This division included the short gastric vessels proximally.? This dissection was carried from approximately 4 cm-6 cm proximal to the pylorus and extending all the way up to the angle of Hiss. During this process the posterior aspect of the stomach was mobilized from the underlying peritoneum and the posterior aspect of the stomach was well exposed. With the greater curvature of the stomach exposed from within 4-6 cm of the pylorus and extending to the angle of Hiss, which also included the posterior stomach, a 40 [place] standard template passed under direct vision down the esophagus, stomach, and into the first part of the duodenum by the anesthesia provider and under direct guidance and visualization by me, via the laparoscopy. Using the template 40 [place] aligned along the lesser curvature of the stomach and all the way to the first part of the Duodenum, the 40 [place] Bougie was used as a template the laparoscopic vertical gastric sleeve was performed starting from a point about 5 cm from the pylorus along the greater curvature. Using the [place] Laparoscopic PAULO linear cutting stapler with [employer] Endopath enforcement, a series of jess were used to transect the stomach in a vertical fashion along the left side of the template. Through the entire division of the stomach using the staplers, the template was always checked to be in good place and well aligned to the lesser curvature while dividing the stomach. This was carried all the way to the angle of Hiss. [place] 60 mm Green loads were used for the distal third of the stomach and Gold loads were used for the more proximal part of the stomach and then blue loads with reinforcement. All staplers were reinforced by Endopath. The staple line along the remaining tubularized stomach was tested for leaks and bleeding under direct vision as the 40 [place] template was exchanged (and there was no evidence of blood on the tip of the template) by a standard diagnostic EGD via the mouth by my me after I scrubbed out, insufflation was achieved using CO2 gas and the staple line submerged under saline, meanwhile a clamp was applied distally onto the end of the tubularized stomach to allow insufflation test for leak. There was no evidence of leak .There was adequate hemostasis along the staple line.EGD was taken out at this point after deflation of the tubularized stomach. I scrubbed the back in. The transected partial stomach, which included the greater curvature, was removed from the peritoneum through the first 12 mm trocar site, and was sent for permanent pathology. Prior to closure of the fascia.? A final look laparoscopy identified no injuries or bleeding or bowel ischemia. Bilateral TAP (transversus abdominous plain peripheral nerve block) block using Exparel 20 mL Exparel,40 ml Normal saline,20 ml bupivacaine 0.25% 30 mL on each side injected, 20 mL injected the port sites. An interrupted #1 PDS suture on a granny needle suture passer was used to close the right epigastric and the other 12 mm trocar left of the midline fascial defects under direct visualization. The other trocars were removed under direct vision and no evidence of bleeding was identified. The pneumoperitoneum was decompressed. All skin incisions were irrigated with saline, then closed with jess, followed by application of sterile dressings. The patient was extubated and taken to the recovery room with normal vital signs. Lynn catheter was maintained All counts of instruments, sponges and needles were completed at the end of the procedure I was present for the whole entire procedure Dictated By: Jayro Maza MD Vitals Last Vital Signs Temp 98.2 F 11/04/21 08:00 Pulse 76 11/04/21 08:00 Resp 15 11/04/21 08:00 BP 145/81 11/04/21 08:00 Pulse Ox 95 11/04/21 08:00 O2 Del Method 11/04/21 08:00 O2 Flow Rate 2 11/02/21 15:07 Discharge Plan Discharge Patient Disposition: Home Condition: Stable Prescriptions: New hydrocodone-acetaminophen 5-325 mg tablet 1 tab PO Q6H PRN (Reason: pain) Qty: 28 0RF scopolamine base 1 mg over 3 days patch 3 day 1 patch transdermal Q3D PRN (Reason: nausea and vomiting) Qty: 4 3RF ondansetron 4 mg tablet,disintegrating 4 mg PO Q6H PRN (Reason: nausea and vomiting) Qty: 30 2RF Lovenox 40 mg/0.4 mL syringe 40 mg SUBCUT DAILY 10 Days Qty: 4 0RF Continued atenolol 25 mg tablet 25 mg PO DAILY hydrochlorothiazide 25 mg tablet 25 mg PO DAILY omega-3 fatty acids [Fish Oil Concentrate] 1,000 mg capsule 3,000 mg PO BID magnesium oxide 420 mg tablet 420 mg PO DAILY metformin 1,000 mg tablet 1,000 mg PO BID atorvastatin 10 mg tablet 10 mg PO DAILY Ubrelvy 100 mg tablet 100 mg PO ONCE Qty: 90 1RF Rx Instructions: has not started yet. Discharge Orders: Discharge Order (Routine); Ordered 11/04/21 Ordered By: Jayro Maza Referrals: Romy García FNP [Primary Care Provider] - Jayro Maza MD [Physician] - (Return to bariatric surgery office in 1 week) Discharge Diet: As Directed Discharge Activity: Limit activity as instructed Patient Instructions: Opioid Safety Activity Restrictions/Additional Instructions: Post discharge instructions: 1. Patient can shower after 48 hours from surgery. Do not soak in bathtub, swimming pool or hot tub for 4 weeks after surgery. 2. Leave incisions open to air, do not apply triple antibiotic ointment or medications on the incisions. 3. Up and walking as tolerated Activity 4. Do not lift more than 5 pounds first 2 weeks after surgery and not more than 25 pounds 6 to 8 weeks after surgery. Driving 5. Do not operate heavy machinery or drive while using pain medications Diet Stage 1 When do I start this stage? The day after your surgery (Day 1). You will get to start this stage after you pass the upper GI study and/or methylene blue test. How long will I be on this stage? Day 1 thru day 2 or until you are discharged from the hospital. Goals: ? Drink 4 to 6 ounces of fluid per hour. ? Aim for a total of 64 ounces of fluid daily. Add the following food/beverages to your diet: Clear broth or bouillon 100% no sugar added apple, cranberry, or grape juice. Dilute with 1 part juice and 1 part water. No citrus justice (i.e. organe juice, grapefruit juice, etc.) Limit to 8 ounces per or less per day. Tea (do not add milk) Coffee (do not add milk or creamer) Sugar-free gelatin Sugar-free popsicles Sugar-free flavored beverages (Crystal Light?, Sugar-Free Ton-Aid?, Propel?, PowerAde Zero?, Vitamin Water 10?, Fruit?0?, Sob? Lean?, etc.) Artificial sweetener of your choice Stage 2 When do I start this stage? Day 3 (or once you are discharged from the hospital) How long will I be on this stage? Day 3 thru Day 13 Goals: ? Drink 4 to 6 ounces of fluid per hour. ? Aim for a total of 64 ounces of fluid daily. ? Aim to meet protein goals with liquid protein supplements Add the following food/beverages to your diet: Protein supplements (thin, water-based supplement may be easier to digest at first while milk-based supplements may feel ``heavy?? and uncomfortable at first) Milk: 1%, skim, light soy milk, or lactose-free milk Pain control Patient was given a prescription for hydrocodone Nausea Nausea is common after surgery, take nausea medications as needed and stay on a liquid bland diet until nausea resolves. Breathing Patient was encouraged and was given incentive spirometer to use at home 10 times an hour while awake Call the office at [phone] during office hours or go the Emergency Room after hours for - ?Fever to 100.4 or greater Discharge Attestations Time Spent in Discharge Care*: greater than 30 min Specific Discharge Activities: educating patient, educating and/or supporting family/caregiver and documenting/other paperwork Status at Discharge: Cognitive status at discharge: cognitively intact, Behavioral status at discharge: cooperative, Functional status at discharge: independent ambulation, Overall status at discharge: patient is progressing back to baseline Quality Metrics Clinical Quality Measures [ No reported AMI, CVA or VTE this stay] Coding Level of Care Code Acute Chg FW DC note Diagnoses Status post laparoscopic sleeve gastrectomy Z98.84
[2021-11-04 12:00] VITALS: BP 146/77; PULSE 55; RESP 16; TEMP 36.5; O2SAT 97
[2021-11-04 13:42] VITALS: BP 146/77; PULSE 55; RESP 16; TEMP 36.5; O2SAT 97
== END 2021-11-04 14:19 | disposition home or self-care (01) | DRG 621 ==
LOC: MEDSURG 12:44
PROVIDERS: Admitting Provider Surgery; PCP Nurse Practitioner; Visit Provider Surgery
PROC: 0DB64Z3 Excision of Stomach, Percutaneous Endoscopic Approach, Vertical (ICD-10-PCS; CPT 43775; principal; 2021-11-02 09:00)
PROC: 0DJ08ZZ Inspection of Upper Intestinal Tract, Via Natural or Artificial Opening Endoscopic (ICD-10-PCS; CPT 43235; 2021-11-02 09:00)
DX: E66.01 Morbid (severe) obesity due to excess calories (principal); Z68.37 Body mass index [BMI] 37.0-37.9, adult; E11.9 Type 2 diabetes mellitus without complications; I10 Essential (primary) hypertension; E78.00 Pure hypercholesterolemia, unspecified; K21.9 Gastro-esophageal reflux disease without esophagitis; G89.29 Other chronic pain; M54.9 Dorsalgia, unspecified; K29.50 Unspecified chronic gastritis without bleeding; Z79.84 Long term (current) use of oral hypoglycemic drugs; K75.81 Nonalcoholic steatohepatitis (NASH); E83.51 Hypocalcemia
CPT/HCPCS: 36415; 36416; 51702; 74240; 80048; 82962; 85014; 85018; 88309; 93005; 96372; C9113; J0330; J0610; J1100; J1170; J1200; J1644; J2250; J2270; J2405; J2704; J2765; J3010; J3490; J7030; Q9963

== ENCOUNTER → 2021-11-12 12:33 | Outpatient (BNVA) | payer OTHER, SELFPAY | PROVIDERS: PCP Nurse Practitioner; Visit Provider Surgery | DX: Z98.84 Bariatric surgery status (principal) | CPT/HCPCS: 99024 ==

== ENCOUNTER → 2021-12-10 13:32 | Outpatient (BNVA) | payer OTHER, SELFPAY | PROVIDERS: PCP Nurse Practitioner; Visit Provider Surgery | DX: Z98.84 Bariatric surgery status (principal) | CPT/HCPCS: 99024 ==

== ENCOUNTER → 2021-12-17 08:00 | Outpatient (BNVA) | payer OTHER, SELFPAY | PROVIDERS: PCP Nurse Practitioner; Visit Provider Specialist | DX: G43.711 Chronic migraine without aura, intractable, with status migrainosus (principal) | CPT/HCPCS: 64615; J0585 ==

== ENCOUNTER 2022-01-27 08:19 | Outpatient (CLI) | payer OTHER, SELFPAY ==
[2022-01-27 09:02] LABS: Basophils % 0.7 %; Eosinophils # 0.1 10^3/uL (0.0-0.8); Eosinophils % 2.3 %; Hematocrit 38.8 % (37.0-47.0); Hemoglobin 13.1 g/dL (11.5-15.3); Lymphocytes # 2.3 10^3/uL (0.8-4.8); Lymphocytes % 40.4 %; Mean Corpuscular HGB Conc 33.8 g/dL (30.0-36.0); Mean Corpuscular Hemoglobin 28.7 pg (28.0-34.0); Mean Corpuscular Volume 84.9 fl (81-99); Mean Platelet Volume 11.5 fL (7.4-10.4); Monocytes # 0.4 10^3/uL (0.2-0.9); Monocytes % 6.3 %; Neutrophils # 2.85 10^3/uL (1.8-7.7); Neutrophils % 50.1 %; Nucleated Red Blood Cells % 0 %; Platelet Count 157 10^3/cmm (130-400); Red Blood Count 4.57 10^6/uL (4.1-5.3); Red Cell Distribution Width 16.7 % (12.1-15.1); White Blood Count 5.7 10^3/uL (4.0-10.0)
[2022-01-27 09:32] LABS: Calcium 9.9 mg/dL (8.5-10.5); Parathyroid Hormone 27.3 pg/mL (15-65)
[2022-01-27 09:38] LABS: Alanine Aminotransferase 16 U/L (0-33); Albumin Level 4.5 g/dL (3.5-5.2); Alkaline Phosphatase 49 U/L (35-105); Anion Gap 12.6 (5-19); Aspartate Amino Transferase 23 U/L (0-32); Blood Urea Nitrogen 17 mg/dL (6-20); Carbon Dioxide 29 mmol/L (22-29); Chloride 103 mmol/L (98-107); Chol HDL Ratio 2.77 mg/dL (0.0-4.40); Cholesterol 158 mg/dL (0-200); Ferritin 48 ng/mL (15-150); Globulin 2.7 g/dL (1.3-4.6); Glomerular Filtration Rate 67.4 mL/min (90-130); Glucose 99 mg/dL (65-115); HDL Cholesterol 57 mg/dL (60-100); Iron 83 ug/dL (37-145); LDL Cholesterol Calculated 75 mg/dL (50-129); LDL HDL Ratio 1.32 RATIO (0.00-3.22); Magnesium 1.8 mg/dL (1.7-2.3); Osmolality Calculated 294 mOsm/kg (285-295); Percent Saturation 25.2 % (20-50); Potassium 3.6 mmol/L (3.5-5.1); Sodium 141 mmol/L (136-145); Thyroid Stimulating Hormone 1.23 uIU/mL (0.27-4.20); Total Bilirubin 0.8 mg/dL (0.15-1.2); Total Iron Binding Capacity 329 mcg/dl; Total Protein 7.2 g/dL (6.6-8.7); Triglycerides 132 mg/dL (0-150); Unsaturated Iron Binding 246 ug/dL (112-347); Vitamin B12 617 pg/mL (232-1245)
[2022-01-27 10:08] LABS: Folate Level > 20.0 ng/mL (4.8-37.3)
[2022-01-31 19:17] LABS: Zinc Level, Serum or Plasma 84 mcg/dL (60-130)
[2022-01-31 23:38] LABS: Vitamin B1(Thiamin) Plas/Ser 28 nmol/L (8-30)
[2022-02-01 09:57] LABS: Vit D 1,25 (Oh)2, Total 32 pg/mL (18-72); Vit D2 1,25 (Oh)2 <8 pg/mL; Vit D3 1,25 (Oh)2 32 pg/mL
== END 2022-01-27 08:20 | disposition home or self-care (01) ==
PROVIDERS: PCP Nurse Practitioner; Visit Provider Surgery
DX: Z98.84 Bariatric surgery status (principal)
CPT/HCPCS: 36415; 80053; 80061; 82310; 82607; 82652; 82728; 82746; 83540; 83550; 83735; 83970; 84425; 84443; 84630; 85025

== ENCOUNTER → 2022-02-03 08:10 | Outpatient (BNVA) | payer OTHER, SELFPAY | PROVIDERS: PCP Nurse Practitioner; Visit Provider Surgery | DX: Z98.84 Bariatric surgery status (principal) | CPT/HCPCS: 99213 ==

== ENCOUNTER → 2022-03-11 08:25 | Outpatient (BNVA) | payer OTHER, SELFPAY | PROVIDERS: PCP Nurse Practitioner; Visit Provider Specialist | DX: G43.711 Chronic migraine without aura, intractable, with status migrainosus (principal) | CPT/HCPCS: 64615; 95911; J0585 ==

== ENCOUNTER 2022-06-02 11:03 | Outpatient (CLI) | payer OTHER, SELFPAY ==
[2022-06-02 12:20] LABS: 25 Hydroxy Vitamin D 60 ng/mL (30-100); Ferritin 47 ng/mL (15-150); Iron 105 ug/dL (37-145); Magnesium 1.9 mg/dL (1.7-2.3); Percent Saturation 32.6 % (20-50); Thyroid Stimulating Hormone 0.74 uIU/mL (0.27-4.20); Total Iron Binding Capacity 322 mcg/dl; Unsaturated Iron Binding 217 ug/dL (112-347)
[2022-06-07 14:59] LABS: Zinc Level, Serum or Plasma 86 mcg/dL (60-130)
== END 2022-06-02 11:04 | disposition home or self-care (01) ==
LOC: LAB 11:06
PROVIDERS: PCP Nurse Practitioner; Visit Provider Nurse Practitioner Family
DX: L65.0 Telogen effluvium (principal); K75.81 Nonalcoholic steatohepatitis (NASH)
CPT/HCPCS: 36415; 82306; 82728; 83540; 83550; 83735; 84443; 84630

== ENCOUNTER → 2022-06-03 08:01 | Outpatient (BNVA) | payer OTHER, SELFPAY | PROVIDERS: PCP Nurse Practitioner; Visit Provider Specialist | DX: G43.711 Chronic migraine without aura, intractable, with status migrainosus (principal) | CPT/HCPCS: 64615; J0585 ==

== ENCOUNTER 2022-08-09 07:24 | Outpatient (CLI) | payer OTHER, SELFPAY ==
--- NOTE | 2022-08-09 07:31 | MM_ITS ---
WS: [id number] BILATERAL SCREENING DIGITAL TOMOSYNTHESIS MAMMOGRAM WITH CAD HISTORY: SCREENING COMPARISON: 08/07/2021, 06/30/2020 and 02/27/2019 Bilateral CC and MLO views with tomosynthesis and synthetic mammography submitted. Computer aided det ection analyzed. Breast composition: There are scattered areas of fibroglandular density. No suspicious masses, microc alcifications or architectural distortion. There is a focal asymmetry in the anterior LEFT breast whi ch has been stable on multiple prior exams. MM/[place] [id number] IMPRESSION: BI-RADS: 2-Benign FOLLOW UP: 1 Year Follow-up
== END 2022-08-09 07:25 | disposition home or self-care (01) ==
PROVIDERS: PCP Nurse Practitioner; Visit Provider Nurse Practitioner
DX: Z12.31 Encounter for screening mammogram for malignant neoplasm of breast (principal)
CPT/HCPCS: 77063; 77067

== ENCOUNTER → 2022-09-09 07:58 | Outpatient (BNVA) | payer OTHER, SELFPAY | PROVIDERS: PCP Nurse Practitioner; Referring Provider Specialist; Visit Provider Specialist | DX: G43.711 Chronic migraine without aura, intractable, with status migrainosus (principal) | CPT/HCPCS: 64615; J0585 ==

== ENCOUNTER 2022-09-23 09:20 | Emergency (ER) | payer OTHER, SELFPAY ==
[2022-09-23] VITALS (10 sets, daily range): BP systolic 92–120; BP diastolic 53–68; PULSE 65–117; RESP 16–18; TEMP 36.7; O2SAT 94–100; BMI 26.9
--- NOTE | 2022-09-23 09:59 | ECG_ITS ---
[facility] Test Date: 2022-09-23 Pat Name: Yvette Pascual Department: Room: Gender: Female Security Installer: : 1975 Requested By: Josefa Lewis Order Number: [id number] Camacho MD: Conchita Gutierrez M.D. Measurements Intervals [place] Rate: 82 P: 62 IL: 156 QRS: 64 QRSD: 85 T: 62 QT: 356 QTc: 418 Interpretive Statements SINUS RHYTHM Compared to ECG 11/03/2021 09:50:24 Sinus bradycardia no longer present Electronically Signed On 09-23-2022 11:23:06 CDT by Conhcita Gutierrez M.D. [email or web address]
--- NOTE | 2022-09-23 10:06 | ED_ITS ---
HPI - General Adult General: Chief complaint: Dizziness Stated complaint: [facility]izzy,heart racing Time Seen by Provider: 09/23/22 09:46 Source: patient Mode of arrival: ambulatory Limitations: no limitations History of Present Illness: Patient is a 47-year-old female who presents to the ED today with a complaint of low blood pressure, elevated heart rate, and feeling dizzy. Patient states she began taking Topamax 100 mg daily on Tuesday for treatment of her migraine headaches. She states a few hours after taking this medication she began feeling dizzy. She states later that evening she took her blood pressure and readings were 80s/50s. Patient states she was intermittently dizzy all day yesterday and into this morning thus [facility]. Patient states she does have a history of hypertension and takes lisinopril/HCTZ. Patient has not been otherwise ill. No vomiting or diarrhea. She feels like oral intake has been adequate. No fevers. She does not complain of pain anywhere. Onset (ago): day(s) Relieving factors: none Exacerbating factors: other (positional changes) Associated symptoms: Reports headache(s); Deny chest pain, confusion, dyspnea, malaise, nausea, rash, palpitations, syncope or vomiting Treatments prior to arrival: none Review of Systems Const: Denies: fever(s), chills, body aches, fatigue or malaise Eyes: Denies: change in vision, blurry vision, photophobia, floaters or seeing flashes Card: Reports: other (reports racing heart rate ); Denies: chest pain, palpitations, irregular heart rhythm, edema, swelling of feet/ankles, syncope, pre-syncope, dyspnea on exertion, orthopnea or acrocyanosis Resp: Denies: dyspnea GI: Denies: abdominal pain, nausea, vomiting or diarrhea : Denies: flank pain or dysuria Musc: Denies: neck pain, back pain, extremity pain or joint pain Skin/Breast: Denies: rash Neuro: Reports: headache(s) and dizziness; Denies: numbness in extremities, weakness in extremities, sensory changes, lack of coordination, difficulty walking, frequent falls, confusion, behavioral changes, Slurred speech present, difficulty communicating thoughts or seizure- like activity PFS ED PFSH: Medical History Ch mgr wo david w ntr w [facility] Diabetes History of LEEP (loop electrosurgical excision procedure) of cervix complicating Hypertension Surgical History History of axillary surgery Bilateral History of bilateral carpal tunnel release History of D&C History of hysterectomy History of wisdom tooth extraction Status post laparoscopic sleeve gastrectomy Family History Grandfather CAD (coronary artery disease) Diabetes Grandmother Cancer Mother Diabetes Hypertension Fibromyalgia Father Diabetes Hypertension Atrial fibrillation Sister Diabetes Hypertension Social History Smoking and tobacco status: never smoked Physical Exam Const: COMMON NORMALS: no acute distress, average body habitus, patient oriented x3, no limitations, healthy appearing, alert and well nourished GENERAL APPEARANCE: cooperative ORIENTATION/CONSCIOUSNESS: Yes awake, Yes oriented to person, Yes oriented to place and Yes oriented to time HENMT: COMMON NORMALS: normocephalic and atraumatic HEAD & SCALP: normal to inspection, normocephalic and atraumatic Eye: OTHER: chronic L ptosis Neck/C-Spine: COMMON NORMALS: full ROM, no lymphadenopathy, supple and no meningeal signs Resp: COMMON NORMALS: normal respiratory effort and clear to auscultation bilaterally AUSCULTATION: clear to auscultation bilaterally Cardio: COMMON NORMALS: regular rate and regular rhythm RATE: regular rate RHYTHM: regular rhythm GI: COMMON NORMALS: Normal to inspection, nondistended, normoactive bowel sounds present, Soft to palpation, non-tender, No hepatosplenomegaly present and no masses PALPATION: Yes Soft to palpation and Yes No hepatosplenomegaly present : COMMON NORMALS: Yes no CVA tenderness BLADDER/KIDNEY EXAM: Yes no CVA t enderness Back/Pelvis: COMMON NORMALS: no CVA tenderness, thoracic and lumbar spine normal to inspection, no thoracic nor lumbar tenderness and thoraco-lumbar ROM normal Extremity: COMMON NORMALS: normal to inspection GENERAL: Yes normal exam except as noted Neuro: MARILYN COMA SCALE: document GCS findings [place] coma scale eye opening: Spontaneous [place] coma scale verbal response: Orientated [place] coma scale motor response: Obey commands Marilyn coma scale total score: 15 COMMON NORMALS: patient oriented x3, CN's II-XII intact bilaterally, moves all extremities, no focal motor deficits and no sensory deficits noted SENSORIUM/ORIENTATION: Yes alert, Yes oriented to person, Yes oriented to place and Yes oriented to time MENINGEAL SIGNS: Yes no meningeal signs SPEECH: speech normal GAIT: Yes Normal gait present MOTOR EXAM: 5/5 motor strength present throughout Skin: COMMON NORMALS: no rashes or lesions noted GENERAL SKIN EXAM: no rashes or lesions noted Course Vital Signs: Vital signs: Vital Signs Temperature 98.0 F 09/23/22 09:23 Pulse Rate 68 09/23/22 11:17 Respiratory Rate 18 09/23/22 09:23 Blood Pressure 97/53 09/23/22 11:17 Pulse Oximetry 97 09/23/22 11:17 Oxygen Delivery Me thod Room Air 09/23/22 09:23 MDM - General Adult Medical Decision Making Patient is asymptomatic upon arrival to the ED. Patient was initially triaged with tachycardia however heart rate has been in the 60s and 70s throughout her stay. Her orthostatic vital signs are negative. Does not complain of dizziness here. She was able to ambulate to the bathroom several times without difficulty or assistance. EKG showing sinus rhythm with a rate of 82. Her CXR is normal. Blood work showing some mild increases to her kidney functions with a BUN/Cr at 55/1.3. Nothing on history to suggest obstruction. Patient was given 2 L of fluids here and states she feels much better. [facility] next [facility] for reevaluation. We will have her discontinue the Topamax as well as hold her lisinopril/HCTZ until blood pressure and kidney functions improve. Return ED precautions given. Lab Data 09/23/22 10:10 09/23/22 10:10 Radiology Impressions Chest X-Ray 09/23/22 10:56 IMPRESSION: Unremarkable chest radiograph. Laboratory Results WBC 7.0 10^3/uL (4.0-10.0) 09/23/22 10:10 RBC 5.12 10^6/uL (4.1-5.3) 09/23/22 10:10 Hgb 15.5 g/dL (11.5-15.3) H 09/23/22 10:10 Hct 45.9 % (37.0-47.0) 09/23/22 10:10 MCV 89.6 fl (81-99) 09/23/22 10:10 MCH 30.3 pg (28.0-34.0) 09/23/22 10:10 MCHC 33.8 g/dL (30.0-36.0) 09/23/22 10:10 RDW 12.7 % (12.1-15.1) 09/23/22 10:10 Plt Count 177 10^3/cmm (130-400) 09/23/22 10:10 MPV 11.1 fL (7.4-10.4) H 09/23/22 10:10 Neut % (Auto) 59.9 % 09/23/22 10:10 Lymph % (Auto) 29.8 % 09/23/22 10:10 [place] % (Auto) 8.4 % 09/23/22 10:10 Eos % (Auto) 1.0 % 09/23/22 10:10 Baso % (Auto) 0.6 % 09/23/22 10:10 Neut # (Auto) 4.22 10^3/uL (1.8-7.7) 09/23/22 10:10 Lymph # (Auto) 2.1 10^3/uL (0.8-4.8) 09/23/22 10:10 [place] # (Auto) 0.6 10^3/uL (0.2-0.9) 09/23/22 10:10 Eos # (Auto) 0.1 10^3/uL (0.0-0.8) 09/23/22 10:10 Baso # (Auto) 0.0 10^3/uL (0.0-0.1) 09/23/22 10:10 Nucleated RBC % (auto) 0 % 09/23/22 10:10 Nucleated RBCs # 0.0 /100WBC 09/23/22 10:10 Sodium 135 mmol/L (136-145) L 09/23/22 10:10 Potassium 4.5 mmol/L (3.5-5.1) 09/23/22 10:10 Chloride 99 mmol/L (98-107) 09/23/22 10:10 Carbon Dioxide 23 mmol/L (22-29) 09/23/22 10:10 Anion Gap 17.5 (5-19) 09/23/22 10:10 BUN 55 mg/dL (6-20) H 09/23/22 10:10 Creatinine 1.3 mg/dL (0.5-0.9) H 09/23/22 10:10 GFR Calculation 43.9 mL/min (90-130) L 09/23/22 10:10 Glucose 105 mg/dL (65-115) 09/23/22 10:10 Calculated Osmolality 295 mOsm/kg (285-295) 09/23/22 10:10 Lactic Acid 1.4 mmol/L (0.5-2.2) 09/23/22 10:10 Calcium 9.7 mg/dL (8.5-10.5) 09/23/22 10:10 Total Bilirubin 0.8 mg/dL (0.15-1.2) 09/23/22 10:10 AST 17 U/L (0-32) 09/23/22 10:10 ALT 14 U/L (0-33) 09/23/22 10:10 Alkaline Phosphatase 53 U/L (35-105) 09/23/22 10:10 Total Protein 7.9 g/dL (6.6-8.7) 09/23/22 10:10 Albumin 4.7 g/dL (3.5-5.2) 09/23/22 10:10 Globulin 3.2 g/dL (1.3-4.6) 09/23/22 10:10 HCG, Qual Negative (Negative) 09/23/22 10:10 Urine Color Dark yellow (Yellow) 09/23/22 Unknown Urine Appearance Hazy (CLEAR) A 09/23/22 Unknown Urine pH 5 (5-7) 09/23/22 Unknown Ur Specific [place] 1.025 (1.005-1.030) 09/23/22 Unknown Urine Protein Neg (Negative) 09/23/22 Unknown Urine Glucose (UA) Norm (Normal) 09/23/22 Unknown Urine Ketones 1+ (Negative) H 09/23/22 Unknown Urine Blood Neg (Negative) 09/23/22 Unknown Urine Nitrate Negative (Negative) 09/23/22 Unknown Urine Bilirubin Neg (Negative) 09/23/22 Unknown Urine Urobilinogen Norm mg/dL (Negative) 09/23/22 Unknown Ur Leukocyte Esterase Negative (Negative) 09/23/22 Unknown Urine RBC 0-4 /hpf (0-2) H 09/23/22 Unknown Urine WBC 0-4 /hpf (0-5) H 09/23/22 Unknown Ur Squamous Epith Cells 5-10 /hpf (0-5) H 09/23/22 Unknown Amorphous Sediment Trace /hpf 09/23/22 Unknown Urine Bacteria Trace /hpf (NONE) 09/23/22 Unknown Hyaline Casts 0-4 /lpf H 09/23/22 Unknown Urine Mucus None /hpf 09/23/22 Unknown Discharge Plan Discharge Patient Disposition: Home Clinical Impression: Acute hypotension Condition: Stable Prescriptions: Held lisinopril-hydrochlorothiazide 10-12.5 mg tablet 1 tab PO DAILY Hold Instructions: Resume on 09/28/22. until [facility] with the [facility] Discontinued topiramate [Topamax] 100 mg tablet 100 mg PO DAILY Qty: 90 1RF No Action magnesium oxide 420 mg tablet 420 mg PO DAILY atorvastatin 10 mg tablet 10 mg PO DAILY tacrolimus [Protopic] 0.1 % ointment 1 applic topical BID Qty: 60 1RF Rx Instructions: To areas on chest prn clobetasol 0.05 % solution 1 applic topical BID 14 Days Qty: 50 3RF Rx Instructions: Apply a few drops to itchy areas on scalp as needed. Discharge Orders: Discharge ED (Routine); Ordered 09/23/22 Ordered By: Josefa Lewis Referrals: Romy García, OUTB[facility] CALL CENTER REPRESENTATIVE [Primary Care Provider] - Activity Restrictions/Additional Instructions: As we discussed you need to [facility] or [facility] next week for reevaluation. You need to discontinue/hold your blood pressure medication and the Topamax until you speak to the [facility] and[facility]or Dr. Lux. You need to return to the emergency department for continued dizziness, passing out episodes, racing heart rate, severe lightheadedness, any chest pain, shortness of breath, difficulty breathing, generally feeling worse or unwell, or any other concerns you may have. Coding Level of Care Code ED Routing Clerk for Guero Valentine
[2022-09-23 10:21] LABS: Basophils % 0.6 %; Eosinophils # 0.1 10^3/uL (0.0-0.8); Hematocrit 45.9 % (37.0-47.0); Hemoglobin 15.5 g/dL (11.5-15.3); Lymphocytes # 2.1 10^3/uL (0.8-4.8); Lymphocytes % 29.8 %; Mean Corpuscular HGB Conc 33.8 g/dL (30.0-36.0); Mean Corpuscular Hemoglobin 30.3 pg (28.0-34.0); Mean Corpuscular Volume 89.6 fl (81-99); Mean Platelet Volume 11.1 fL (7.4-10.4); Monocytes # 0.6 10^3/uL (0.2-0.9); Monocytes % 8.4 %; Neutrophils # 4.22 10^3/uL (1.8-7.7); Neutrophils % 59.9 %; Nucleated Red Blood Cells % 0 %; Platelet Count 177 10^3/cmm (130-400); Red Blood Count 5.12 10^6/uL (4.1-5.3); Red Cell Distribution Width 12.7 % (12.1-15.1)
[2022-09-23 10:37] LABS: Alanine Aminotransferase 14 U/L (0-33); Albumin Level 4.7 g/dL (3.5-5.2); Alkaline Phosphatase 53 U/L (35-105); Anion Gap 17.5 (5-19); Aspartate Amino Transferase 17 U/L (0-32); Blood Urea Nitrogen 55 mg/dL (6-20); Calcium 9.7 mg/dL (8.5-10.5); Carbon Dioxide 23 mmol/L (22-29); Chloride 99 mmol/L (98-107); Globulin 3.2 g/dL (1.3-4.6); Glomerular Filtration Rate 43.9 mL/min (90-130); Glucose 105 mg/dL (65-115); Lactic Sepsis W/Reflex 1.4 mmol/L (0.5-2.2); Osmolality Calculated 295 mOsm/kg (285-295); Potassium 4.5 mmol/L (3.5-5.1); Sodium 135 mmol/L (136-145); Total Bilirubin 0.8 mg/dL (0.15-1.2); Total Protein 7.9 g/dL (6.6-8.7)
[2022-09-23] MEDS: sodium chloride 0.9% 1,000 ML 999 ML IV ×2 (10:44→12:00)
[2022-09-23 10:49] LABS: HCG, Serum Qual Negative (Negative)
[2022-09-23 10:49] LABS: Add Urine Microscopic? YES; Bilirubin Urine Neg (Negative); Blood Urine Neg (Negative); Glucose Urine UA Norm (Normal); Ketones Urine 1+ (Negative); Leukocyte Esterase Urine Negative (Negative); Nitrate Urine Negative (Negative); Protein Urine Neg (Negative); Specific Gravity, Urine 1.025 (1.005-1.030); Urine Appearance Hazy (CLEAR); Urine Color Dark Yellow (Yellow); Urobilinogen Urine Norm (Negative); pH Urine 5 (5-7)
[2022-09-23 10:54] LABS: Add Urine Culture? No; Amorphous Sediment Urine TRACE /hpf; Bacteria Urine TRACE /hpf; Hyaline Casts Urine 0-4 /lpf; RBC Urine 0-4 /hpf (0-2); WBC Urine 0-4 /hpf (0-5)
--- NOTE | 2022-09-23 10:56 | XR_ITS ---
WS: [id number] Exam: XR chest 1V portable [id number] Date/Time of Exam: 09/23/2022 10:57 AM Reason For Exam: elevated HR/low BP No priors. Findings: The lungs are clear and fully expanded. Costophrenic angles are sharp. No infiltrates. Bronchovascula r relief appears normal. Cardiac silhouette is unremarkable. Bony elements are intact. XR/XR chest 1V portable [id number] IMPRESSION: Unremarkable chest radiograph.
--- NOTE | 2022-09-23 12:20 | PC.NURSE ---
PT AMBULATED TO RESTROOM. GAIT AND BALANCE WNL. PHYSICIAN NOTIFIED.
== END 2022-09-23 13:20 | disposition home or self-care (01) ==
PROVIDERS: Emergency Provider Physician Assistant; PCP Nurse Practitioner
DX: I95.89 Other hypotension (principal)
CPT/HCPCS: 71045; 80053; 81001; 83605; 84703; 85025; 93005; 96360; 96361; 99285; J7030

== ENCOUNTER → 2022-12-09 08:19 | Outpatient (BNVA) | payer OTHER, SELFPAY | PROVIDERS: PCP Nurse Practitioner; Visit Provider Specialist | DX: G43.711 Chronic migraine without aura, intractable, with status migrainosus (principal) | CPT/HCPCS: 64615; J0585 ==

== ENCOUNTER → 2022-12-13 08:55 | Outpatient (BNVA) | payer OTHER, SELFPAY | PROVIDERS: PCP Nurse Practitioner; Visit Provider Nurse Practitioner Family | DX: L57.0 Actinic keratosis (principal); L57.8 Other skin changes due to chronic exposure to nonionizing radiation; L81.4 Other melanin hyperpigmentation; L65.0 Telogen effluvium; T46.4X5A Adverse effect of angiotensin-converting-enzyme inhibitors, initial encounter; T46.6X5A Adverse effect of antihyperlipidemic and antiarteriosclerotic drugs, initial encounter; Z98.84 Bariatric surgery status | CPT/HCPCS: 17000; 99214 ==

== ENCOUNTER 2022-12-28 08:39 | Outpatient (CLI) | payer OTHER, SELFPAY ==
[2022-12-28 09:37] LABS: Basophils # 0.1 10^3/uL (0.0-0.1); Basophils % 0.9 %; Eosinophils # 0.1 10^3/uL (0.0-0.8); Eosinophils % 2.3 %; Hematocrit 43.6 % (36-47); Mean Corpuscular HGB Conc 34.4 g/dL (30-55); Mean Corpuscular Hemoglobin 30.9 pg (27-33); Mean Corpuscular Volume 89.9 fl (85-98); Mean Platelet Volume 10.7 fL (7.4-10.4); Monocytes # 0.4 10^3/uL (0.2-0.9); Neutrophils # 2.72 10^3/uL (1.8-7.7); Neutrophils % 51.4 %; Nucleated Red Blood Cells % 0 %; Platelet Count 148 10^3/cmm (157-399); Red Blood Count 4.85 10^6/uL (3.85-5.65); Red Cell Distribution Width 12.7 % (12.1-15.1); White Blood Count 5.29 10^3/uL (3.29-11.43)
[2022-12-28 10:22] LABS: 25 Hydroxy Vitamin D 77 ng/mL (30-100); Ferritin 77 ng/mL (15-150)
[2022-12-28 11:06] LABS: Free T4 Free Thyroxine 1.36 ng/dL (0.82-1.77)
[2022-12-28 11:33] LABS: Folate Level > 20.0 ng/mL (4.8-37.3)
[2022-12-30 17:44] LABS: Zinc Level, Serum or Plasma 93 mcg/dL (60-130)
== END 2022-12-28 08:40 | disposition home or self-care (01) ==
PROVIDERS: PCP Nurse Practitioner; Visit Provider Nurse Practitioner Family
DX: L65.0 Telogen effluvium (principal)
CPT/HCPCS: 36415; 82306; 82728; 82746; 84439; 84630; 85025

== ENCOUNTER → 2023-03-03 08:18 | Outpatient (BNVA) | payer OTHER, SELFPAY | PROVIDERS: PCP Nurse Practitioner; Visit Provider Specialist | DX: G43.711 Chronic migraine without aura, intractable, with status migrainosus (principal) | CPT/HCPCS: 64615; 64643; J0585 ==

== ENCOUNTER → 2023-06-02 08:28 | Outpatient (BNVA) | payer OTHER, SELFPAY | PROVIDERS: PCP Nurse Practitioner; Visit Provider Specialist | DX: G43.711 Chronic migraine without aura, intractable, with status migrainosus (principal) | CPT/HCPCS: 64615; J0585 ==

== ENCOUNTER 2023-08-12 07:22 | Outpatient (CLI) | payer OTHER, SELFPAY ==
--- NOTE | 2023-08-12 07:26 | MM_ITS ---
WS: [id number] BILATERAL SCREENING DIGITAL TOMOSYNTHESIS MAMMOGRAM WITH CAD HISTORY: SCREEN COMPARISON: 08/09/2022, 08/07/2021 Bilateral CC and MLO views with tomosynthesis and synthetic mammography submitted. Computer aided det ection analyzed. Breast composition: There are scattered areas of fibroglandular density. No suspicious masses, microc alcifications or architectural distortion. Stable asymmetry in the posterior medial RIGHT breast. MM/[place] [id number] IMPRESSION: BI-RADS: 2-Benign FOLLOW UP: 1 Year Follow-up
== END 2023-08-12 07:23 | disposition home or self-care (01) ==
LOC: RAD 07:22
PROVIDERS: PCP Nurse Practitioner; Visit Provider Nurse Practitioner
DX: Z12.31 Encounter for screening mammogram for malignant neoplasm of breast (principal)
CPT/HCPCS: 77063; 77067

== ENCOUNTER 2023-11-01 07:08 | Outpatient (CLI) | payer OTHER, SELFPAY ==
--- NOTE | 2023-11-01 07:12 | MR_ITS ---
WS: [id number] MRI HEAD WITH CONTRAST TECHNIQUE: Sagittal T1, T2 axial, T2 axial FLAIR, axial susceptibility weighted imaging, axial diffus ion weighted images, and coronal T2 images were obtained. Pre and post-T1 axial and post T1 coronal i mages. ADC and FSPGR images. CLINICAL INFORMATION: WORSENING MIGRAINES COMPARISON: CT 2019 FINDINGS: Some images degraded due to susceptibly artifact from nose piercing unable to remove No evidence of restricted diffusion to suggest acute ischemia. Minimal supratentorial white matter ch anges. Small vessel changes in the jadyn. Mild parenchymal volume loss. Normal posterior fossa. Normal vascular flow voids at the skull base. No extra-axial fluid collections. No evidence of mass or mass effect. Paranasal sinuses and mastoid air cells are well aerated. Normal posterior nasopharynx. No hemosiderin on susceptibility-weighted images. Normal optic chiasm and pituitary infundibulum. Tem poral lobes and hippocampal formations are normal in appearance. No abnormal gadolinium enhancement. Normal dural venous sinuses. MR/MR head wo/w con [id number] IMPRESSION: 1. No evidence of restricted diffusion to suggest acute ischemia. 2. Minimal supratentorial white matter changes nonspecific but can be seen wit h migraine headaches. Small vessel changes in the jadyn. Mild parenchymal volume loss. 3. No hemosiderin on the susceptibly weighted images. 4. No abnormal gadolinium enhancement.
[2023-11-01] MEDS: gadobenate dimeglumine 20 mL vial 15 ML IV (07:54)
== END 2023-11-01 07:09 | disposition home or self-care (01) ==
LOC: RAD 07:08
PROVIDERS: PCP Nurse Practitioner; Visit Provider Nurse Practitioner
DX: G43.909 Migraine, unspecified, not intractable, without status migrainosus (principal)
CPT/HCPCS: 70553; A9577

== ENCOUNTER → 2023-12-01 08:07 | Outpatient (BNVA) | payer OTHER, SELFPAY | PROVIDERS: PCP Nurse Practitioner; Visit Provider Specialist | DX: G43.711 Chronic migraine without aura, intractable, with status migrainosus (principal) | CPT/HCPCS: 99214 ==

== ENCOUNTER → 2023-12-14 08:32 | Outpatient (BNVA) | payer OTHER, SELFPAY | PROVIDERS: PCP Nurse Practitioner; Visit Provider Nurse Practitioner Family | DX: L65.0 Telogen effluvium (principal); D22.5 Melanocytic nevi of trunk; L57.8 Other skin changes due to chronic exposure to nonionizing radiation; L81.4 Other melanin hyperpigmentation; D48.5 Neoplasm of uncertain behavior of skin; L21.8 Other seborrheic dermatitis; L82.0 Inflamed seborrheic keratosis; D22.72 Melanocytic nevi of left lower limb, including hip; D22.71 Melanocytic nevi of right lower limb, including hip | CPT/HCPCS: 11104; 17110; 99214 ==

== ENCOUNTER → 2023-12-26 07:58 | Outpatient (BNVA) | payer OTHER, SELFPAY | PROVIDERS: PCP Nurse Practitioner; Visit Provider Nurse Practitioner Family | DX: D23.71 Other benign neoplasm of skin of right lower limb, including hip (principal); L57.8 Other skin changes due to chronic exposure to nonionizing radiation | CPT/HCPCS: 99213 ==

== ENCOUNTER → 2024-02-29 12:22 | Outpatient (BNVA) | payer OTHER, SELFPAY | PROVIDERS: PCP Nurse Practitioner; Visit Provider Specialist | DX: G43.711 Chronic migraine without aura, intractable, with status migrainosus (principal) | CPT/HCPCS: 99213 ==

== ENCOUNTER → 2024-05-29 10:30 | Outpatient (BNVA) | payer OTHER, SELFPAY | PROVIDERS: PCP Nurse Practitioner; Visit Provider Specialist | DX: G43.711 Chronic migraine without aura, intractable, with status migrainosus (principal) | CPT/HCPCS: 99212 ==

== ENCOUNTER 2024-08-13 07:51 | Outpatient (CLI) | payer OTHER, SELFPAY ==
--- NOTE | 2024-08-13 07:53 | MM_ITS ---
WS: [id number] BILATERAL SCREENING DIGITAL TOMOSYNTHESIS MAMMOGRAM WITH CAD HISTORY: SCREENING COMPARISON: 08/12/2023, 08/09/2022 and 08/07/2021 Bilateral CC and MLO views with tomosynthesis and synthetic mammography submitted. Computer aided detection analyzed. Breast composition: There are scattered areas of fibroglandular density. No suspicious masses, microcalcifications or architectural distortion. There are a few scattered calcifications within each breast. MM/MM scr tomosynthesis [id number] IMPRESSION: BI-RADS: 2 - Benign. FOLLOW UP: 1 Year Follow-up
== END 2024-08-13 07:52 | disposition home or self-care (01) ==
LOC: RAD 07:52
PROVIDERS: PCP Nurse Practitioner; Visit Provider Nurse Practitioner
DX: Z12.31 Encounter for screening mammogram for malignant neoplasm of breast (principal); R92.323 Mammographic fibroglandular density, bilateral breasts; R92.1 Mammographic calcification found on diagnostic imaging of breast
CPT/HCPCS: 77063; 77067

== ENCOUNTER → 2024-11-20 11:54 | Outpatient (BNVA) | payer OTHER, SELFPAY | PROVIDERS: PCP Nurse Practitioner; Visit Provider Specialist | DX: G43.711 Chronic migraine without aura, intractable, with status migrainosus (principal) | CPT/HCPCS: 99213 ==

== ENCOUNTER → 2024-12-28 11:19 | Outpatient (BNVA) | payer OTHER, SELFPAY | PROVIDERS: PCP Nurse Practitioner; Visit Provider Nurse Practitioner Family | DX: D23.71 Other benign neoplasm of skin of right lower limb, including hip (principal); D23.62 Other benign neoplasm of skin of left upper limb, including shoulder; D23.39 Other benign neoplasm of skin of other parts of face; D22.72 Melanocytic nevi of left lower limb, including hip; D22.71 Melanocytic nevi of right lower limb, including hip; L57.8 Other skin changes due to chronic exposure to nonionizing radiation; L81.4 Other melanin hyperpigmentation; D22.61 Melanocytic nevi of right upper limb, including shoulder; Z80.8 Family history of malignant neoplasm of other organs or systems | CPT/HCPCS: 99213 ==